=== PATIENT | male | born 1970 | race Two or more races ===

== ENCOUNTER 2019-01-09 11:59 | Inpatient (IN) | payer OTHER ==
[~2019-01-09] VITALS: Ht 175.3 cm; Wt 78.3 kg
[~2019-01-09 11:59] MED LIST: ALBU8HFA PO; AUD NEB; AZIT250T9 PO; IPRNEB IH; LIB25 PO; LISI-660 PO; METO25 PO
[2019-01-09] MEDS ORDERED: MONT10TA21 PO (12:05)
[2019-01-09] MEDS ORDERED: MECLIZINE HCL 25 MG TABLET PO ONE (13:15)
[2019-01-09] MEDS ORDERED: ONDANSETRON HCL 4 MG/2 ML VIAL IVP ONE (13:15)
[2019-01-09] MEDS ORDERED: SODIUM CHLORIDE 0.9% 1,000 ML IV ONE (13:15)
[2019-01-09 13:30] LABS: BASOPHILS % (AUTO) 0.7 % (0.0-2.0); EOSINOPHILS % (AUTO) 2.3 % (1.0-6.0); HEMATOCRIT 40.1 % (41-53); HEMOGLOBIN 13.2 g/dL (13.5-17.5); LYMPHOCYTES # (AUTO) 1.5 K/uL (1.0-4.8); LYMPHOCYTES % (AUTO) 24.1 % (22.0-44.0); MEAN CORPUSCULAR HEMOGLOBIN 30.2 pg (26.0-34.0); MEAN CORPUSCULAR HGB CONC 32.8 G/dL (31.0-37.0); MEAN CORPUSCULAR VOLUME 92 fL (80-100); MONOCYTES # (AUTO) 0.3 K/uL (0.1-1.0); MONOCYTES % (AUTO) 5.1 % (2.0-9.0); NEUTROPHILS # (AUTO) 4.2 K/uL (1.8-7.7); NEUTROPHILS % (AUTO) 67.8 % (40.0-70.0); PLATELET COUNT (AUTO) 474 K/uL (150-450); RED BLOOD CELL COUNT(AUTO) 4.36 MIL/uL (4.50-5.90); RED CELL DISTRIBUTION WIDTH 15.5 % (11.5-14.5)
[2019-01-09 13:41] LABS: ANION GAP 8 mmol/L (8-16); CALCIUM, TOTAL 10.1 mg/dL (8.8-10.5); CARBON DIOXIDE 29 mmol/L (22-29); CHLORIDE 103 mmol/L (98-107); CREATININE 1.13 mg/dL (0.60-1.30); GLOMERULAR FILTR. RATE CALC > 60 mL/min (>60); GLUCOSE,RANDOM 123 mg/dL (70-110); POTASSIUM 3.9 mmol/L (3.5-5.1); SODIUM SERUM 140 mmol/L (136-145); UREA NITROGEN, BLOOD 7 mg/dL (7-18)
[2019-01-09 13:53] LABS: ALANINE AMINOTRANSFERASE 46 U/L (12-78); ALBUMIN 3.1 g/dL (3.4-5.0); ALKALINE PHOSPHATASE 78 U/L (46-116); ASPARTATE AMINOTRANSFERASE 30 U/L (15-37); BILIRUBIN,TOTAL 0.3 mg/dL (0.1-1.0); TOTAL PROTEIN, SERUM 7.2 g/dL (6.4-8.2)
[2019-01-09] MEDS ORDERED: ACETAMINOPHEN 325 MG TABLET PO PRN (15:30)
[2019-01-09] MEDS ORDERED: ONDANSETRON HCL 4 MG/2 ML VIAL IVP PRN ×2 (15:30→22:15)
[2019-01-09 17:04] VITALS: BP 135/96
[2019-01-09] MEDS: OMEPRAZOLE 20 MG CAPSULE PO SCH (18:07)
[2019-01-09 19:25] VITALS: BP 132/84
[2019-01-09] MEDS: IPRATROPIUM BROMIDE 0.5 MG/2.5 ML NEB SOLUTION NEB SCH (19:33)
[2019-01-09] MEDS: ALBUTEROL SULFATE 2.5 MG/0.5 ML NEB SOLUTION NEB SCH (19:33)
[2019-01-09] MEDS: METOPROLOL TARTRATE 25 MG TABLET PO SCH (21:01)
[2019-01-09] MEDS ORDERED: ENALAPRILAT DIHYDRATE 1.25 MG/ML 2 ML VIAL IVP PRN (22:30)
[2019-01-09] MEDS ORDERED: [UNRECOGNIZED DRUG - REMARK] IV ONE ×5 (22:30)
[2019-01-09] MEDS ORDERED: ChlordiazePOXIDE HCL 25 MG CAPSULE PO PRN (22:30)
[2019-01-09] MEDS ORDERED: METOPROLOL TARTRATE 25 MG TABLET PO SCH (22:30)
[2019-01-09] MEDS ORDERED: MECLIZINE HCL 25 MG TABLET PO PRN (22:30)
[2019-01-09] MEDS ORDERED: OLANZapine 5 MG TABLET PO PRN (22:30)
[2019-01-09 22:53] LABS: INR 0.9 (0.9-1.1); PROTHROMBIN TIME 9.8 SEC (9.4-11.6)
[2019-01-09] MEDS: FAMOTIDINE 20 MG TABLET PO SCH (23:06)
[2019-01-09 23:18] VITALS: BP 114/84
[2019-01-10] MEDS ORDERED: ChlordiazePOXIDE HCL 25 MG CAPSULE PO SCH
[2019-01-10] MEDS: ALBUTEROL SULFATE 2.5 MG/0.5 ML NEB SOLUTION NEB SCH ×4 (02:07→20:36)
[2019-01-10] MEDS: IPRATROPIUM BROMIDE 0.5 MG/2.5 ML NEB SOLUTION NEB SCH ×4 (02:07→20:35)
[2019-01-10 03:23] VITALS: BP 109/67
[2019-01-10 06:39] LABS: BASOPHILS % (AUTO) 1.1 % (0.0-2.0); EOSINOPHILS % (AUTO) 2.6 % (1.0-6.0); HEMATOCRIT 35.6 % (41-53); HEMOGLOBIN 11.9 g/dL (13.5-17.5); LYMPHOCYTES # (AUTO) 1.7 K/uL (1.0-4.8); LYMPHOCYTES % (AUTO) 27.6 % (22.0-44.0); MEAN CORPUSCULAR HEMOGLOBIN 30.8 pg (26.0-34.0); MEAN CORPUSCULAR HGB CONC 33.5 G/dL (31.0-37.0); MEAN CORPUSCULAR VOLUME 92 fL (80-100); MONOCYTES # (AUTO) 0.5 K/uL (0.1-1.0); MONOCYTES % (AUTO) 8.4 % (2.0-9.0); NEUTROPHILS # (AUTO) 3.8 K/uL (1.8-7.7); NEUTROPHILS % (AUTO) 60.3 % (40.0-70.0); PLATELET COUNT (AUTO) 467 K/uL (150-450); RED BLOOD CELL COUNT(AUTO) 3.88 MIL/uL (4.50-5.90); RED CELL DISTRIBUTION WIDTH 15.5 % (11.5-14.5)
[2019-01-10 06:59] LABS: ALANINE AMINOTRANSFERASE 36 U/L (12-78); ALBUMIN 2.5 g/dL (3.4-5.0); ALKALINE PHOSPHATASE 68 U/L (46-116); ANION GAP 5 mmol/L (8-16); ASPARTATE AMINOTRANSFERASE 27 U/L (15-37); BILIRUBIN,TOTAL 0.3 mg/dL (0.1-1.0); CALCIUM, TOTAL 9.2 mg/dL (8.8-10.5); CARBON DIOXIDE 29 mmol/L (22-29); CHLORIDE 105 mmol/L (98-107); CREATININE 1.07 mg/dL (0.60-1.30); GLOMERULAR FILTR. RATE CALC > 60 mL/min (>60); GLUCOSE,RANDOM 116 mg/dL (70-110); POTASSIUM 4.1 mmol/L (3.5-5.1); SODIUM SERUM 139 mmol/L (136-145); TOTAL PROTEIN, SERUM 6.1 g/dL (6.4-8.2); UREA NITROGEN, BLOOD 6 mg/dL (7-18)
[2019-01-10] MEDS ORDERED: LISINOPRIL 10 MG TABLET PO SCH (09:00)
[2019-01-10] MEDS ORDERED: IPRATROPIUM BROMIDE 0.5 MG/2.5 ML NEB SOLUTION NEB SCH (09:00)
[2019-01-10] MEDS ORDERED: ALBUTEROL SULFATE 2.5 MG/0.5 ML NEB SOLUTION NEB SCH (09:00)
[2019-01-10] MEDS: MONTELUKAST SODIUM 10 MG TABLET PO SCH (09:31)
[2019-01-10] MEDS: THIAMINE HCL 100 MG TABLET PO SCH (09:31)
[2019-01-10] MEDS: OMEPRAZOLE 20 MG CAPSULE PO SCH (09:32)
[2019-01-10] MEDS: METOPROLOL TARTRATE 25 MG TABLET PO SCH ×2 (09:32→21:53)
[2019-01-10] MEDS: FAMOTIDINE 20 MG TABLET PO SCH ×2 (09:32→21:52)
[2019-01-10] MEDS: ENOXAPARIN SODIUM 40 MG/0.4 ML PF SYRINGE SQ SCH (09:32)
[2019-01-10] MEDS: LISINOPRIL 5 MG TABLET PO SCH (09:33)
[2019-01-10 09:34] VITALS: BP 123/72
[2019-01-10 12:23] VITALS: BP 122/84
[2019-01-10] MEDS: HYDROCODONE/ACETAMINOPHEN 5-325 MG TABLET PO PRN (15:31)
[2019-01-10 16:21] VITALS: BP 114/71
[2019-01-10 19:22] VITALS: BP 113/75
[2019-01-10] MEDS: ChlordiazePOXIDE HCL 25 MG CAPSULE PO SCH (21:52)
[2019-01-11] VITALS (7 sets, daily range): BP systolic 106–120; BP diastolic 71–83
[2019-01-11] MEDS: IPRATROPIUM BROMIDE 0.5 MG/2.5 ML NEB SOLUTION NEB SCH ×4 (02:19→20:18)
[2019-01-11] MEDS: ALBUTEROL SULFATE 2.5 MG/0.5 ML NEB SOLUTION NEB SCH ×4 (02:19→20:18)
[2019-01-11] MEDS: ChlordiazePOXIDE HCL 25 MG CAPSULE PO SCH ×4 (08:05→20:42)
[2019-01-11] MEDS: ENOXAPARIN SODIUM 40 MG/0.4 ML PF SYRINGE SQ SCH (08:05)
[2019-01-11] MEDS: MONTELUKAST SODIUM 10 MG TABLET PO SCH (08:05)
[2019-01-11] MEDS: THIAMINE HCL 100 MG TABLET PO SCH (08:05)
[2019-01-11] MEDS: FAMOTIDINE 20 MG TABLET PO SCH ×2 (08:05→20:42)
[2019-01-11] MEDS: MULTIVITAMINS WITH MINERALS, THERAPEUTIC TABLET PO SCH (08:06)
[2019-01-11] MEDS: OMEPRAZOLE 20 MG CAPSULE PO SCH (08:06)
[2019-01-11] MEDS: LISINOPRIL 5 MG TABLET PO SCH (08:09)
[2019-01-11] MEDS: METOPROLOL TARTRATE 25 MG TABLET PO SCH ×2 (08:10→20:42)
[2019-01-12] MEDS: IPRATROPIUM BROMIDE 0.5 MG/2.5 ML NEB SOLUTION NEB SCH ×3 (01:58→13:42)
[2019-01-12] MEDS: ALBUTEROL SULFATE 2.5 MG/0.5 ML NEB SOLUTION NEB SCH ×3 (01:58→13:42)
[2019-01-12 04:13] VITALS: BP 112/76
[2019-01-12] MEDS: HYDROCODONE/ACETAMINOPHEN 5-325 MG TABLET PO PRN (06:25)
[2019-01-12] MEDS: THIAMINE HCL 100 MG TABLET PO SCH (08:04)
[2019-01-12] MEDS: MONTELUKAST SODIUM 10 MG TABLET PO SCH (08:04)
[2019-01-12] MEDS: LISINOPRIL 5 MG TABLET PO SCH (08:04)
[2019-01-12] MEDS: ENOXAPARIN SODIUM 40 MG/0.4 ML PF SYRINGE SQ SCH (08:04)
[2019-01-12] MEDS: FAMOTIDINE 20 MG TABLET PO SCH (08:04)
[2019-01-12] MEDS: METOPROLOL TARTRATE 25 MG TABLET PO SCH (08:04)
[2019-01-12] MEDS: OMEPRAZOLE 20 MG CAPSULE PO SCH (08:04)
[2019-01-12] MEDS: ChlordiazePOXIDE HCL 25 MG CAPSULE PO SCH ×2 (08:04→13:22)
[2019-01-12] MEDS: MULTIVITAMINS WITH MINERALS, THERAPEUTIC TABLET PO SCH (08:04)
[2019-01-12 08:45] VITALS: BP 106/77
[2019-01-12 12:15] VITALS: BP 104/75
[2019-01-12] MEDS ORDERED: MECL-111 PO (15:13)
[2019-01-12] MEDS ORDERED: HYDR-4031 PO (15:14)
== END 2019-01-12 16:05 | disposition home or self-care (01) | DRG 775 ==
LOC: EMS 12:01 → 5S 15:25
PROVIDERS: ADMIT Internal Medicine; ATTEND Internal Medicine
DX: F10.29 Alcohol dependence with unspecified alcohol-induced disorder (principal); I10 Essential (primary) hypertension; J44.9 Chronic obstructive pulmonary disease, unspecified; R26.0 Ataxic gait; Z87.01 Personal history of pneumonia (recurrent); Z79.899 Other long term (current) drug therapy
CPT/HCPCS: 70450; 70551; 83036; 93005; 93880; 94640; 97116; 97162; 97530; G0378; G0480; J1650; J2405; J3411; J3475; J3490; J7030

== ENCOUNTER 2019-04-14 15:55 | Inpatient (IN) | payer OTHER, MEDICAID ==
[~2019-04-14] VITALS: Ht 175.3 cm; Wt 95.3 kg
[~2019-04-14 15:55] MED LIST changes: -ALBU8HFA PO; -AUD NEB; -AZIT250T9 PO; +HYDR-4031 PO; -IPRNEB IH; -LIB25 PO; -LISI-660 PO; +MECL-111 PO; -METO25 PO
[2019-04-14] MEDS ORDERED: LISI-660 PO (16:06)
[2019-04-14] MEDS ORDERED: METO25XL PO (16:07)
[2019-04-14 17:12] LABS: MEAN CORPUSCULAR HEMOGLOBIN 28.3 pg (26.0-34.0); MEAN CORPUSCULAR HGB CONC 34.1 G/dL (31.0-37.0); MEAN CORPUSCULAR VOLUME 83 fL (80-100); PLATELET COUNT (AUTO) 102 K/uL (150-450); RED BLOOD CELL COUNT(AUTO) 5.31 MIL/uL (4.50-5.90); RED CELL DISTRIBUTION WIDTH 17.2 % (11.5-14.5)
[2019-04-14 17:25] LABS: POTASSIUM 3.6 mmol/L (3.5-5.1)
[2019-04-14 17:26] LABS: ALBUMIN 2.7 g/dL (3.4-5.0); BILIRUBIN,TOTAL 3.8 mg/dL (0.1-1.0); CALCIUM, TOTAL 6.8 mg/dL (8.8-10.5)
[2019-04-14 17:32] LABS: FREE T4 (FREE THYROXINE) 0.67 ng/dL (0.76-1.46); THYROID STIMULATING HORMONE 2.93 uIU/mL (0.36-3.74)
[2019-04-14] MEDS ORDERED: METO25 PO (17:42)
[2019-04-14] MEDS ORDERED: LORazepam 2 MG/ML VIAL IVP ONE (17:45)
[2019-04-14] MEDS ORDERED: MAGNESIUM SULFATE 2 GM, MVI, ADULT NO.1 WITH VIT K 10 ML, THIAMINE HCL 100 MG, FOLIC AC... IV ONE ×10 (17:45→23:00)
[2019-04-14 18:04] LABS: CREATININE 1.37 mg/dL (0.60-1.30)
[2019-04-14 18:06] LABS: TOTAL PROTEIN, SERUM 5.6 g/dL (6.4-8.2)
[2019-04-14 18:10] LABS: BAND NEUTROPHILS % (MANUAL) 0 % (0-5)
[2019-04-14 18:12] LABS: EOSINOPHILS % (MANUAL) 1 % (1-6); LYMPHOCYTES % (MANUAL) 31 % (22-44); MONOCYTES % (MANUAL) 8 % (2-9); SEGMENTED NEUTROPHILS % 60 % (40-70)
[2019-04-14] MEDS ORDERED: ACETAMINOPHEN 325 MG TABLET PO PRN (20:45)
[2019-04-14] MEDS ORDERED: ONDANSETRON HCL 4 MG/2 ML VIAL IVP PRN (20:45)
[2019-04-14] MEDS ORDERED: 0.9% SODIUM CHLORIDE 10 ML SYRINGE IVP PRN ×2 (20:45→22:15)
[2019-04-14] MEDS ORDERED: SODIUM CHLORIDE 0.9% 1,000 ML IV SCH (22:15)
[2019-04-14] MEDS ORDERED: MAGNESIUM OXIDE 400 MG TABLET PO PRN (22:15)
[2019-04-14] MEDS ORDERED: MAGNESIUM SULFATE 2 GM/WATER 50 ML IV PRN (22:15)
[2019-04-14] MEDS ORDERED: POTASSIUM CHL 10 MEQ/WATER 50 ML IV PRN (22:15)
[2019-04-14] MEDS ORDERED: MAGNESIUM SULFATE 4 GM/WATER 100 ML IV PRN (22:15)
[2019-04-14] MEDS ORDERED: POTASSIUM CHLORIDE 20 MEQ ER TABLET PO PRN (22:15)
[2019-04-14 22:21] VITALS: BP 155/103
[2019-04-14] MEDS: HEPARIN SODIUM,PORCINE 5,000 UNITS/ML VIAL SQ SCH (23:08)
[2019-04-14] MEDS: PANTOPRAZOLE SODIUM 40 MG DR TABLET PO SCH (23:08)
[2019-04-14] MEDS: ChlordiazePOXIDE HCL 10 MG CAPSULE PO SCH (23:08)
[2019-04-14] MEDS: IPRATROPIUM BROMIDE 0.5 MG/2.5 ML NEB SOLUTION NEB PRN (23:23)
[2019-04-14] MEDS: ALBUTEROL SULFATE 2.5 MG/0.5 ML NEB SOLUTION NEB PRN (23:23)
[2019-04-14 23:30] VITALS: BP 149/97
[2019-04-15] MEDS: ZOLPIDEM TARTRATE 5 MG TABLET PO PRN (00:14)
[2019-04-15 00:29] VITALS: BP 134/91
[2019-04-15 04:41] VITALS: BP 139/88
[2019-04-15] MEDS: ChlordiazePOXIDE HCL 10 MG CAPSULE PO SCH (05:04)
[2019-04-15] MEDS ORDERED: ACETAMINOPHEN 325 MG TABLET PO ONE (05:15)
[2019-04-15] MEDS ORDERED: PNEUMOCOCCAL VACCINE POLYVALENT 0.5 ML VIAL [PPSV23] IM ONE (06:00)
[2019-04-15 06:01] LABS: HEMATOCRIT 39.3 % (41-53); HEMOGLOBIN 13.5 g/dL (13.5-17.5); MEAN CORPUSCULAR HEMOGLOBIN 29.2 pg (26.0-34.0); MEAN CORPUSCULAR HGB CONC 34.5 G/dL (31.0-37.0); MEAN CORPUSCULAR VOLUME 85 fL (80-100); PLATELET COUNT (AUTO) 89 K/uL (150-450); RED BLOOD CELL COUNT(AUTO) 4.64 MIL/uL (4.50-5.90); RED CELL DISTRIBUTION WIDTH 16.8 % (11.5-14.5)
[2019-04-15 06:39] LABS: ALBUMIN 2.4 g/dL (3.4-5.0); BILIRUBIN,TOTAL 4.3 mg/dL (0.1-1.0); CALCIUM, TOTAL 6.5 mg/dL (8.8-10.5); MAGNESIUM 2.4 mg/dL (1.80-2.40)
[2019-04-15 06:56] LABS: BAND NEUTROPHILS % (MANUAL) 0 % (0-5)
[2019-04-15 06:59] LABS: LYMPHOCYTES % (MANUAL) 38 % (22-44); MONOCYTES % (MANUAL) 4 % (2-9); SEGMENTED NEUTROPHILS % 58 % (40-70)
[2019-04-15 07:28] LABS: CREATININE 1.28 mg/dL (0.60-1.30)
[2019-04-15 07:47] VITALS: BP 133/97
[2019-04-15] MEDS: HEPARIN SODIUM,PORCINE 5,000 UNITS/ML VIAL SQ SCH ×2 (07:55)
[2019-04-15] MEDS: METOPROLOL TARTRATE 25 MG TABLET PO SCH ×2 (08:00→20:39)
[2019-04-15] MEDS: PANTOPRAZOLE SODIUM 40 MG DR TABLET PO SCH ×2 (08:00→20:39)
[2019-04-15] MEDS: ONDANSETRON HCL 4 MG/2 ML VIAL IVP PRN ×2 (08:01→15:01)
[2019-04-15] MEDS ORDERED: LISINOPRIL 5 MG TABLET PO SCH (09:00)
[2019-04-15] MEDS ORDERED: SODIUM CHLORIDE 1 GM TABLET PO SCH (09:00)
[2019-04-15] MEDS ORDERED: DOCUSATE SODIUM 100 MG CAPSULE PO SCH (09:00)
[2019-04-15] MEDS ORDERED: ChlordiazePOXIDE HCL 10 MG CAPSULE PO PRN (10:15)
[2019-04-15] MEDS ORDERED: DOCUSATE SODIUM 100 MG CAPSULE PO PRN (10:15)
[2019-04-15] MEDS: FOLIC ACID 1 MG TABLET PO SCH (10:56)
[2019-04-15] MEDS: MULTIVITAMINS WITH MINERALS, THERAPEUTIC TABLET PO SCH (10:57)
[2019-04-15] MEDS: ChlordiazePOXIDE HCL 10 MG CAPSULE PO PRN ×2 (11:05→17:08)
[2019-04-15 11:11] VITALS: BP 147/99
[2019-04-15] MEDS: IPRATROPIUM BROMIDE 0.5 MG/2.5 ML NEB SOLUTION NEB PRN (12:38)
[2019-04-15] MEDS: ALBUTEROL SULFATE 2.5 MG/0.5 ML NEB SOLUTION NEB PRN (12:38)
[2019-04-15] MEDS: GABAPENTIN 100 MG CAPSULE PO SCH ×2 (15:00→20:39)
[2019-04-15] MEDS: ACETAMINOPHEN 500 MG TABLET PO PRN ×2 (15:02→22:27)
[2019-04-15 15:37] LABS: ANION GAP 15 mmol/L (8-16); CALCIUM, TOTAL 6.7 mg/dL (8.8-10.5); CARBON DIOXIDE 16 mmol/L (22-29); CHLORIDE 95 mmol/L (98-107); GLUCOSE,RANDOM 190 mg/dL (70-110); POTASSIUM 3.8 mmol/L (3.5-5.1); SODIUM SERUM 126 mmol/L (136-145); UREA NITROGEN, BLOOD 4 mg/dL (7-18)
[2019-04-15 15:42] VITALS: BP 145/93
[2019-04-15 16:24] LABS: CREATININE 1.09 mg/dL (0.60-1.30); GLOMERULAR FILTR. RATE CALC > 60 mL/min (>60)
[2019-04-15 16:40] LABS: APPEARANCE,URINE CLEAR (CLEAR); BILIRUBIN,URINE NEGATIVE (NEGATIVE); GLUCOSE, URINE (UA) NEGATIVE (NEGATIVE); KETONES,URINE NEGATIVE (NEGATIVE); LEUKOCYTE ESTERASE ,URINE NEGATIVE (NEGATIVE); NITRATE,URINE NEGATIVE (NEGATIVE); OCCULT BLOOD,URINE NEGATIVE (NEGATIVE); PROTEIN,URINE NEGATIVE (NEGATIVE)
[2019-04-15 17:27] LABS: OSMOLALITY,URINE 201 mOS/kg (50-1200)
[2019-04-15 17:32] LABS: SODIUM,URINE RANDOM 42 mmol/l (20-110)
[2019-04-15 18:28] LABS: BACTERIA,URINE None Seen /HPF (None Seen); RBC,URINE None Seen /HPF (0-2); SQUAMOUS EPITHELIAL CELL,UR Rare /LPF (None Seen); WBC,URINE None Seen /HPF (0-5)
[2019-04-15 19:41] VITALS: BP 128/89
[2019-04-15 20:44] LABS: ANION GAP 13 mmol/L (8-16); CALCIUM, TOTAL 7.3 mg/dL (8.8-10.5); CARBON DIOXIDE 17 mmol/L (22-29); CHLORIDE 97 mmol/L (98-107); CREATININE 1.23 mg/dL (0.60-1.30); GLOMERULAR FILTR. RATE CALC > 60 mL/min (>60); GLUCOSE,RANDOM 191 mg/dL (70-110); POTASSIUM 4.6 mmol/L (3.5-5.1); SODIUM SERUM 127 mmol/L (136-145); UREA NITROGEN, BLOOD 3 mg/dL (7-18)
[2019-04-15] MEDS: MIRTAZAPINE 15 MG TABLET PO SCH (22:21)
[2019-04-16] VITALS (7 sets, daily range): BP systolic 120–141; BP diastolic 78–91
[2019-04-16] MEDS: ChlordiazePOXIDE HCL 10 MG CAPSULE PO PRN ×3 (06:03→22:46)
[2019-04-16 06:48] LABS: BASOPHILS % (AUTO) 1.4 % (0.0-2.0); EOSINOPHILS % (AUTO) 2.2 % (1.0-6.0); HEMATOCRIT 40.9 % (41-53); HEMOGLOBIN 13.3 g/dL (13.5-17.5); LYMPHOCYTES # (AUTO) 1.5 K/uL (1.0-4.8); MEAN CORPUSCULAR HEMOGLOBIN 27.4 pg (26.0-34.0); MEAN CORPUSCULAR HGB CONC 32.5 G/dL (31.0-37.0); MEAN CORPUSCULAR VOLUME 84 fL (80-100); MONOCYTES # (AUTO) 0.2 K/uL (0.1-1.0); MONOCYTES % (AUTO) 5.5 % (2.0-9.0); NEUTROPHILS % (AUTO) 51.9 % (40.0-70.0); PLATELET COUNT (AUTO) 96 K/uL (150-450); RED BLOOD CELL COUNT(AUTO) 4.85 MIL/uL (4.50-5.90); RED CELL DISTRIBUTION WIDTH 16.7 % (11.5-14.5)
[2019-04-16 06:56] LABS: INR 1.2 (0.9-1.1); PROTHROMBIN TIME 11.9 SEC (9.4-11.6)
[2019-04-16 07:23] LABS: ALBUMIN 2.6 g/dL (3.4-5.0); ALKALINE PHOSPHATASE 304 U/L (46-116); ANION GAP 7 mmol/L (8-16); BILIRUBIN,TOTAL 4.7 mg/dL (0.1-1.0); CALCIUM, TOTAL 8.4 mg/dL (8.8-10.5); CARBON DIOXIDE 26 mmol/L (22-29); CHLORIDE 101 mmol/L (98-107); CHOL/HDL RATIO 25.4 (4.2-7.3); CHOLESTEROL 381 mg/dL (131-200); CREATININE 1.14 mg/dL (0.60-1.30); FREE T4 (FREE THYROXINE) 0.85 ng/dL (0.76-1.46); GLOMERULAR FILTR. RATE CALC > 60 mL/min (>60); GLUCOSE,RANDOM 122 mg/dL (70-110); HDL CHOLESTEROL 15 mg/dL (40-60); PHOSPHORUS 2.5 mg/dL (2.5-4.9); POTASSIUM 4.2 mmol/L (3.5-5.1); SODIUM SERUM 134 mmol/L (136-145); THYROID STIMULATING HORMONE 3.57 uIU/mL (0.36-3.74); TOTAL PROTEIN, SERUM 6.2 g/dL (6.4-8.2); TRIGLYCERIDES 1937 mg/dL (15-150); UREA NITROGEN, BLOOD 3 mg/dL (7-18)
[2019-04-16] MEDS: PANTOPRAZOLE SODIUM 40 MG DR TABLET PO SCH ×2 (08:13→20:21)
[2019-04-16] MEDS: METOPROLOL TARTRATE 25 MG TABLET PO SCH ×2 (08:13→20:24)
[2019-04-16] MEDS: GABAPENTIN 100 MG CAPSULE PO SCH ×3 (08:13→20:21)
[2019-04-16] MEDS: MULTIVITAMINS WITH MINERALS, THERAPEUTIC TABLET PO SCH (08:14)
[2019-04-16] MEDS: FOLIC ACID 1 MG TABLET PO SCH (08:14)
[2019-04-16] MEDS: THIAMINE HCL 100 MG TABLET PO SCH (08:14)
[2019-04-16 08:33] LABS: ALANINE AMINOTRANSFERASE 187 U/L (12-78); ASPARTATE AMINOTRANSFERASE 506 U/L (15-37)
[2019-04-16] MEDS: IPRATROPIUM BROMIDE 0.5 MG/2.5 ML NEB SOLUTION NEB PRN ×3 (08:51→20:04)
[2019-04-16] MEDS: ALBUTEROL SULFATE 2.5 MG/0.5 ML NEB SOLUTION NEB PRN ×3 (08:51→20:04)
[2019-04-16] MEDS: ONDANSETRON HCL 4 MG/2 ML VIAL IVP PRN (09:15)
[2019-04-16] MEDS: ACETAMINOPHEN 500 MG TABLET PO PRN ×2 (09:16→20:22)
[2019-04-16] MEDS: LACTULOSE 20 GM/30 ML SOLUTION UDCUP PO SCH ×3 (09:16→20:18)
[2019-04-16 10:16] LABS: ANION GAP 12 mmol/L (8-16); CALCIUM, TOTAL 7.9 mg/dL (8.8-10.5); CARBON DIOXIDE 20 mmol/L (22-29); CHLORIDE 102 mmol/L (98-107); CREATININE 1.26 mg/dL (0.60-1.30); GLOMERULAR FILTR. RATE CALC > 60 mL/min (>60); GLUCOSE,RANDOM 164 mg/dL (70-110); POTASSIUM 3.8 mmol/L (3.5-5.1); SODIUM SERUM 134 mmol/L (136-145); UREA NITROGEN, BLOOD 3 mg/dL (7-18)
[2019-04-16] MEDS: GEMFIBROZIL 600 MG TABLET PO SCH (16:35)
[2019-04-16 17:38] LABS: ANION GAP 10 mmol/L (8-16); CALCIUM, TOTAL 8.1 mg/dL (8.8-10.5); CARBON DIOXIDE 22 mmol/L (22-29); CHLORIDE 97 mmol/L (98-107); CHOL/HDL RATIO 30.2 (4.2-7.3); CHOLESTEROL 393 mg/dL (131-200); CREATININE 1.14 mg/dL (0.60-1.30); GLOMERULAR FILTR. RATE CALC > 60 mL/min (>60); GLUCOSE,RANDOM 143 mg/dL (70-110); HDL CHOLESTEROL 13 mg/dL (40-60); POTASSIUM 4.4 mmol/L (3.5-5.1); SODIUM SERUM 129 mmol/L (136-145); UREA NITROGEN, BLOOD 4 mg/dL (7-18)
[2019-04-16 17:55] LABS: TRIGLYCERIDES 2069 mg/dL (15-150)
[2019-04-16] MEDS: MIRTAZAPINE 15 MG TABLET PO SCH (20:21)
[2019-04-16] MEDS: ZOLPIDEM TARTRATE 5 MG TABLET PO PRN (22:46)
[2019-04-17 04:57] VITALS: BP 109/78
[2019-04-17] MEDS: GEMFIBROZIL 600 MG TABLET PO SCH (06:02)
[2019-04-17 06:18] LABS: ANION GAP 12 mmol/L (8-16); CARBON DIOXIDE 22 mmol/L (22-29); CHLORIDE 103 mmol/L (98-107); CREATININE 1.06 mg/dL (0.60-1.30); GLOMERULAR FILTR. RATE CALC > 60 mL/min (>60); GLUCOSE,RANDOM 133 mg/dL (70-110); POTASSIUM 4.1 mmol/L (3.5-5.1); SODIUM SERUM 137 mmol/L (136-145); UREA NITROGEN, BLOOD 4 mg/dL (7-18)
[2019-04-17 08:11] VITALS: BP 126/84
[2019-04-17] MEDS: PANTOPRAZOLE SODIUM 40 MG DR TABLET PO SCH (08:40)
[2019-04-17] MEDS: GABAPENTIN 100 MG CAPSULE PO SCH (08:40)
[2019-04-17] MEDS: MULTIVITAMINS WITH MINERALS, THERAPEUTIC TABLET PO SCH (08:41)
[2019-04-17] MEDS: METOPROLOL TARTRATE 25 MG TABLET PO SCH (08:41)
[2019-04-17] MEDS: FOLIC ACID 1 MG TABLET PO SCH (08:41)
[2019-04-17] MEDS: THIAMINE HCL 100 MG TABLET PO SCH (08:41)
[2019-04-17] MEDS: ChlordiazePOXIDE HCL 10 MG CAPSULE PO PRN (08:52)
[2019-04-17] MEDS: LACTULOSE 20 GM/30 ML SOLUTION UDCUP PO SCH (09:00)
[2019-04-17 10:57] VITALS: BP 132/78
[2019-04-17 11:12] LABS: ANION GAP 7 mmol/L (8-16); CALCIUM, TOTAL 8.4 mg/dL (8.8-10.5); CARBON DIOXIDE 23 mmol/L (22-29); CHLORIDE 101 mmol/L (98-107); GLOMERULAR FILTR. RATE CALC > 60 mL/min (>60); GLUCOSE,RANDOM 152 mg/dL (70-110); POTASSIUM 4.2 mmol/L (3.5-5.1); SODIUM SERUM 131 mmol/L (136-145); UREA NITROGEN, BLOOD 4 mg/dL (7-18)
[2019-04-17] MEDS ORDERED: FOLI1 PO (12:00)
[2019-04-17] MEDS ORDERED: LACT30L PO (12:01)
[2019-04-17] MEDS ORDERED: THIA100T67 PO (12:01)
[2019-04-17] MEDS ORDERED: MIRT15 PO (12:03)
[2019-04-17] MEDS ORDERED: GABA-529 PO (12:03)
[2019-04-17] MEDS ORDERED: PANT40TA25 PO (12:04)
[2019-04-17] MEDS ORDERED: MULT1TAB28 PO (12:04)
== END 2019-04-17 15:40 | disposition home or self-care (01) | DRG 775 ==
LOC: EMS 15:56 → 5S 20:19
PROVIDERS: ADMIT Internal Medicine; ATTEND Internal Medicine
DX: F10.239 Alcohol dependence with withdrawal, unspecified (principal); D61.818 Other pancytopenia; D69.59 Other secondary thrombocytopenia; F33.3 Major depressive disorder, recurrent, severe with psychotic symptoms; K70.10 Alcoholic hepatitis without ascites; K72.90 Hepatic failure, unspecified without coma; E87.1 Hypo-osmolality and hyponatremia; I10 Essential (primary) hypertension; J45.909 Unspecified asthma, uncomplicated; D63.8 Anemia in other chronic diseases classified elsewhere; G47.9 Sleep disorder, unspecified; R00.0 Tachycardia, unspecified; R19.7 Diarrhea, unspecified; E78.1 Pure hyperglyceridemia; F41.9 Anxiety disorder, unspecified; K74.60 Unspecified cirrhosis of liver; Z79.899 Other long term (current) drug therapy; Z91.19 Patient's noncompliance with other medical treatment and regimen; Z87.01 Personal history of pneumonia (recurrent)
CPT/HCPCS: 76705; 80074; 82533; 83735; 83930; 83935; 84100; 84295; 84300; 84439; 84443; 85610; 85730; 93005; 94640; 96365; 96375; G0480; J1644; J2060; J2405; J3411; J3475; J3490; J7030